=== PATIENT | male | born 1975 | race African-American/Black ===

== ENCOUNTER 2020-12-05 07:08 | Inpatient (IN) | payer OTHER ==
[2020-12-05] MEDS ORDERED: SODIUM CHLORIDE 1,000 ML IV STA (07:53)
[2020-12-05] MEDS ORDERED: ACETAMINOPHEN 1000 MG/100 ML VIAL (NON FORMULARY) IVPB ONE (07:53)
[2020-12-05] MEDS ORDERED: PANTOPRAZOLE SODIUM 40 MG VIAL IVPB ONE (07:55)
[2020-12-05] MEDS ORDERED: MAG HYDROX/AL HYDROX/SIMETH -MYLANTA- ORAL SUSPENSION PO ONE (07:55)
[2020-12-05] MEDS ORDERED: PANTOPRAZOLE SODIUM 40 MG/100 ML BAG IVPB ONE (08:02)
[2020-12-05] MEDS ORDERED: ACETAMINOPHEN INJECTION 100 ML IVPB ONE ×2 (08:02→08:23)
[2020-12-05] MEDS ORDERED: MAG HYDROX/AL HYDROX/SIMETH 30 ML UNIT-DOSE CUP ONE (08:21)
[2020-12-05 08:39] LABS: BASO % 0.6 % (0-2.0); EOS % 1.7 % (0-4.5); HEMATOCRIT 45.8 % (35.4-49); HEMOGLOBIN 15.1 GM/dL (11.7-16.9); LYMPH % 11.2 % (8-40); MCH 26.6 pg (25.7-33.7); MCHC 32.9 g/dl (32.0-35.9); MEAN CELL VOLUME 80.8 fl (80-96); MEAN PLT VOLUME 8.4 fl (7.5-11.1); MONO % 7.4 % (3.8-10.2); NEUT % 79.1 % (42.8-82.8); PLATELET COUNT 242 K/MM3 (134-434); RBC 5.67 M/mm3 (4.00-5.60); RDW 13.7 % (11.9-15.9); WHITE BLOOD COUNT 8.1 K/mm3 (4.0-10.0)
[2020-12-05 08:46] LABS: INR 1.06 (0.83-1.09); PROTHROMBIN TIME (PATIENT) 12.8 SEC (9.7-13.0)
[2020-12-05 09:04] LABS: ALBUMIN 4.2 g/dl (3.4-5.0); BLOOD UREA NITROGEN 16.8 mg/dL (7-18); CALCIUM 9.6 mg/dL (8.5-10.1)
[2020-12-05 09:05] LABS: MAGNESIUM 2.3 mg/dL (1.8-2.4)
[2020-12-05 09:08] LABS: BILIRUBIN,TOTAL 0.5 mg/dL (0.2-1); TOT PROT 8.2 g/dl (6.4-8.2)
[2020-12-05 09:58] LABS: URINE APPEARANCE CLEAR; URINE BILIRUBIN NEGATIVE (NEGATIVE); URINE COLOR YELLOW; URINE GLUCOSE (UA) NEGATIVE (NEGATIVE); URINE KETONE NEGATIVE (NEGATIVE); URINE LEUK ESTERASE NEGATIVE (NEGATIVE); URINE NITRITE NEGATIVE (NEGATIVE); URINE PROTEIN NEGATIVE (NEGATIVE); URINE UROBILINOGEN 0.2 mg/dL (0.2-1.0)
[2020-12-05 10:05] LABS: N-TERMINAL BNP 395.9 pg/ml (5-125)
[2020-12-05] MEDS ORDERED: ASPIRIN 325 MG TABLET PO ONE (10:21)
[2020-12-05] MEDS ORDERED: ASPIRIN 325 MG ENTERIC COATED TABLET (FP) ONE (11:45)
[2020-12-05] MEDS ORDERED: morphine CARPU-JECT 4 MG/1 ML DISP.SYRIN IVPUSH ONE (13:57)
[2020-12-05] MEDS ORDERED: morphine SULFATE 4 MG/ML VIAL ONE (14:52)
[2020-12-05] MEDS ORDERED: ENOXAPARIN NA (PORCINE) 40 MG/0.4 ML DISP.SYRIN SQ SCH (15:00)
[2020-12-05 18:37] LABS: HIV INTERPRETATION NEGATIVE (NEGATIVE)
[2020-12-05] MEDS ORDERED: ACETAMINOPHEN 500 MG TABLET (FP) PO PRN (22:35)
[2020-12-05] MEDS ORDERED: ENOXAPARIN NA (PORCINE) 40 MG/0.4 ML DISP.SYRIN SQ ONE (22:40)
[2020-12-05] MEDS: ENOXAPARIN NA (PORCINE) 40 MG/0.4 ML DISP.SYRIN SQ SCH (22:50)
[2020-12-06 01:46] VITALS: BMI 44.1
[2020-12-06 07:37] LABS: BASO % 0.7 % (0-2.0); HEMOGLOBIN 13.6 GM/dL (11.7-16.9); LYMPH % 27.1 % (8-40); MCH 26.9 pg (25.7-33.7); MCHC 33.1 g/dl (32.0-35.9); MEAN CELL VOLUME 81.1 fl (80-96); MEAN PLT VOLUME 8.9 fl (7.5-11.1); MONO % 13.2 % (3.8-10.2); PLATELET COUNT 206 K/MM3 (134-434); RBC 5.05 M/mm3 (4.00-5.60); RDW 13.8 % (11.9-15.9); WHITE BLOOD COUNT 5.8 K/mm3 (4.0-10.0)
[2020-12-06 08:00] LABS: ALBUMIN 3.5 g/dl (3.4-5.0); CALCIUM 8.4 mg/dL (8.5-10.1)
[2020-12-06 08:01] LABS: BLOOD UREA NITROGEN 13.3 mg/dL (7-18)
[2020-12-06 08:02] LABS: MAGNESIUM 2.2 mg/dL (1.8-2.4)
[2020-12-06 08:04] LABS: CREATININE 0.9 mg/dL (0.55-1.3); TOT PROT 6.6 g/dl (6.4-8.2)
[2020-12-06 08:05] LABS: BILIRUBIN,TOTAL 1.1 mg/dL (0.2-1)
[2020-12-06] MEDS: ENOXAPARIN NA (PORCINE) 40 MG/0.4 ML DISP.SYRIN SQ SCH ×2 (09:11→21:14)
[2020-12-06] MEDS ORDERED: ACETAMINOPHEN 500 MG TABLET (FP) PO PRN (21:17)
[2020-12-07 07:21] LABS: BASO % 0.4 % (0-2.0); EOS % 2.3 % (0-4.5); HEMATOCRIT 42.9 % (35.4-49); LYMPH % 31.4 % (8-40); MCH 26.6 pg (25.7-33.7); MCHC 32.6 g/dl (32.0-35.9); MEAN CELL VOLUME 81.5 fl (80-96); MEAN PLT VOLUME 8.8 fl (7.5-11.1); MONO % 14.1 % (3.8-10.2); NEUT % 51.8 % (42.8-82.8); PLATELET COUNT 208 K/MM3 (134-434); RBC 5.27 M/mm3 (4.00-5.60); RDW 13.8 % (11.9-15.9); WHITE BLOOD COUNT 5.8 K/mm3 (4.0-10.0)
[2020-12-07 07:40] LABS: ALBUMIN 3.5 g/dl (3.4-5.0); BLOOD UREA NITROGEN 11.1 mg/dL (7-18); CALCIUM 8.7 mg/dL (8.5-10.1)
[2020-12-07 07:44] LABS: BILIRUBIN,TOTAL 0.3 mg/dL (0.2-1); CREATININE 0.7 mg/dL (0.55-1.3); TOT PROT 6.6 g/dl (6.4-8.2)
[2020-12-07] MEDS: ENOXAPARIN NA (PORCINE) 40 MG/0.4 ML DISP.SYRIN SQ SCH ×2 (09:41→21:54)
[2020-12-07] MEDS: amLODIPine BESYLATE 5 MG TABLET (FP) PO SCH (11:47)
[2020-12-07 16:10] LABS: HEP B CORE AB, TOT Negative (Negative)
[2020-12-08 07:30] LABS: HEMATOCRIT 43.9 % (35.4-49); HEMOGLOBIN 14.2 GM/dL (11.7-16.9); MCH 26.5 pg (25.7-33.7); MCHC 32.4 g/dl (32.0-35.9); MEAN CELL VOLUME 81.9 fl (80-96); MEAN PLT VOLUME 8.6 fl (7.5-11.1); PLATELET COUNT 217 K/MM3 (134-434); RBC 5.36 M/mm3 (4.00-5.60); RDW 13.7 % (11.9-15.9); WHITE BLOOD COUNT 6.1 K/mm3 (4.0-10.0)
[2020-12-08 08:00] LABS: CALCIUM 9.2 mg/dL (8.5-10.1)
[2020-12-08 08:01] LABS: ALBUMIN 3.7 g/dl (3.4-5.0); BLOOD UREA NITROGEN 11.1 mg/dL (7-18)
[2020-12-08 08:06] LABS: BILIRUBIN,TOTAL 0.3 mg/dL (0.2-1)
[2020-12-08] MEDS: amLODIPine BESYLATE 5 MG TABLET (FP) PO SCH (09:47)
[2020-12-08] MEDS: ENOXAPARIN NA (PORCINE) 40 MG/0.4 ML DISP.SYRIN SQ SCH ×2 (10:19→20:59)
[2020-12-08] MEDS: PANTOPRAZOLE 40 MG TABLET PO SCH (13:08)
[2020-12-09] MEDS: PANTOPRAZOLE 40 MG TABLET PO SCH (09:37)
[2020-12-09] MEDS: amLODIPine BESYLATE 5 MG TABLET (FP) PO SCH (09:37)
[2020-12-09] MEDS: ENOXAPARIN NA (PORCINE) 40 MG/0.4 ML DISP.SYRIN SQ SCH (09:37)
[2020-12-09 16:08] VITALS: BP 149/97; PULSE 87; TEMP 98
== END 2020-12-09 15:08 | disposition home or self-care (01) ==
LOC: JER 07:08 → JERBED 14:09 → J4W 12-06 01:16 → J8W 12-08 12:02
PROVIDERS: ADMIT Internal Medicine; ATTEND Internal Medicine
DX: K80.50 Calculus of bile duct without cholangitis or cholecystitis without obstruction (principal); E66.01 Morbid (severe) obesity due to excess calories; Z68.41 Body mass index [BMI] 40.0-44.9, adult; I42.9 Cardiomyopathy, unspecified; A09 Infectious gastroenteritis and colitis, unspecified; I10 Essential (primary) hypertension; K83.8 Other specified diseases of biliary tract; K76.0 Fatty (change of) liver, not elsewhere classified; R94.31 Abnormal electrocardiogram [ECG] [EKG]; K21.9 Gastro-esophageal reflux disease without esophagitis; R74.01 Elevation of levels of liver transaminase levels; R74.8 Abnormal levels of other serum enzymes
CPT/HCPCS: 36415; 71046-TC-FY; 74177-TC; 76705-TC; 80053; 80061; 81003; 82550; 82553; 82977; 83036; 83690; 83721; 83735; 83880; 84100; 84443; 84484; 85025; 85027; 85610; 86140; 86704; 86706; 86707; 86708; 86709; 86803; 87045; 87046; 87086; 87177; 87205; 87209; 87324; 87340; 87389; 87449; 87902; 93005; 93010; 93306-TC; 99285-25; C9803; J0131; Q9967; U0003; U0005

== ENCOUNTER 2021-08-07 17:51 | Inpatient (IN) | payer OTHER ==
[2021-08-07] MEDS ORDERED: ACETAMINOPHEN 500 MG TABLET (FP) PO ONE (20:34)
[2021-08-07] MEDS ORDERED: ACETAMINOPHEN 500 MG TABLET (FP) ONE (21:12)
[2021-08-07 22:17] LABS: INR 1.18 (0.83-1.09); PROTHROMBIN TIME (PATIENT) 13.8 SEC (9.7-13.0)
[2021-08-07 22:19] LABS: ACTIVATED PTT 29.6 SECONDS (25.2-36.5)
[2021-08-07 22:20] LABS: EOS % 1.3 % (0-4.5); HEMATOCRIT 41.9 % (35.4-49); HEMOGLOBIN 13.6 GM/dL (11.7-16.9); LYMPH % 17.3 % (8-40); MCH 25.8 pg (25.7-33.7); MCHC 32.4 g/dl (32.0-35.9); MEAN CELL VOLUME 79.7 fl (80-96); MEAN PLT VOLUME 8.4 fl (7.5-11.1); MONO % 15.4 % (3.8-10.2); PLATELET COUNT 231 10^3/uL (134-434); RBC 5.25 M/mm3 (4.00-5.60); RDW 14.1 % (11.9-15.9); WHITE BLOOD COUNT 6.9 K/mm3 (4.0-10.0)
[2021-08-07 22:23] LABS: BLOOD UREA NITROGEN 13.4 mg/dL (7-18); CALCIUM 8.7 mg/dL (8.5-10.1)
[2021-08-07 22:24] LABS: ALBUMIN 3.4 g/dl (3.4-5.0)
[2021-08-07 22:27] LABS: CREATININE 1.1 mg/dL (0.55-1.3)
[2021-08-07 22:28] LABS: BILIRUBIN,TOTAL 0.3 mg/dL (0.2-1)
[2021-08-07 22:32] LABS: N-TERMINAL BNP 314.1 pg/ml (5-125)
[2021-08-07] MEDS ORDERED: morphine CARPU-JECT 2 MG/1 ML DISP.SYRIN IVPUSH ONE (23:03)
[2021-08-07] MEDS ORDERED: ASPIRIN 81 MG CHEWABLE TABLETS PO ONE (23:03)
[2021-08-07] MEDS ORDERED: ASPIRIN 81 MG CHEWABLE TABLETS ONE (23:14)
[2021-08-08] MEDS ORDERED: ALBUTEROL SO4 HFA INHALER IH PRN (06:53)
[2021-08-08] MEDS ORDERED: DEXAMETHASONE SOD PHOSPHATE 10 MG/1 ML VIAL ONE (07:48)
[2021-08-08] MEDS ORDERED: ENOXAPARIN NA (PORCINE) 40 MG/0.4 ML DISP.SYRIN SQ ONE (07:48)
[2021-08-08] MEDS ORDERED: PANTOPRAZOLE 40 MG TABLET ONE (07:48)
[2021-08-08] MEDS ORDERED: amLODIPine BESYLATE 5 MG TABLET (FP) ONE (07:48)
[2021-08-08 08:48] LABS: BLOOD UREA NITROGEN 11.4 mg/dL (7-18); MAGNESIUM 2.2 mg/dL (1.8-2.4)
[2021-08-08 08:51] LABS: CALCIUM 9.1 mg/dL (8.5-10.1)
[2021-08-08 08:52] LABS: CREATININE 0.9 mg/dL (0.55-1.3)
[2021-08-08] MEDS ORDERED: guaiFENesin/D-M SUGAR-FREE/ACLHOL-FREE 118 ML BOTTLE PO PRN (09:19)
[2021-08-08] MEDS: DEXAMETHASONE SOD PHOSPHATE 10 MG/1 ML VIAL IVPUSH SCH (09:55)
[2021-08-08] MEDS: PANTOPRAZOLE 40 MG TABLET PO SCH (09:55)
[2021-08-08] MEDS: BUDESONIDE/FORMETEROL FUMARATE 160/4.5 mcg INHALER IH SCH (09:56)
[2021-08-08] MEDS ORDERED: ENOXAPARIN NA (PORCINE) 40 MG/0.4 ML DISP.SYRIN SQ SCH ×2 (10:00)
[2021-08-08] MEDS ORDERED: amLODIPine BESYLATE 5 MG TABLET (FP) PO SCH (10:00)
[2021-08-08 10:45] LABS: BASO % 1.1 % (0-2.0); EOS % 0.8 % (0-4.5); HEMATOCRIT 40.6 % (35.4-49); HEMOGLOBIN 13.6 GM/dL (11.7-16.9); LYMPH % 16.6 % (8-40); MCH 26.3 pg (25.7-33.7); MCHC 33.5 g/dl (32.0-35.9); MEAN CELL VOLUME 78.4 fl (80-96); MEAN PLT VOLUME 8.1 fl (7.5-11.1); MONO % 8.3 % (3.8-10.2); NEUT % 73.2 % (42.8-82.8); PLATELET COUNT 213 10^3/uL (134-434); RBC 5.17 M/mm3 (4.00-5.60); RDW 14.1 % (11.9-15.9); WHITE BLOOD COUNT 5.8 K/mm3 (4.0-10.0)
[2021-08-08] MEDS ORDERED: LIDOCAINE 5% TOPICAL PATCH TP ONE (13:27)
[2021-08-08] MEDS ORDERED: REMDESIVIR 200 MG in SODIUM CHLORIDE 250 ML IVPB ONE (14:00)
[2021-08-08] MEDS ORDERED: LIDOCAINE 5% TOPICAL PATCH ONE (14:42)
[2021-08-08] MEDS: ALBUTEROL SO4 HFA INHALER IH SCH ×2 (16:00→23:30)
[2021-08-09 00:20] VITALS: BMI 44.5
[2021-08-09] MEDS: BUDESONIDE/FORMETEROL FUMARATE 160/4.5 mcg INHALER IH SCH ×3 (00:51→21:57)
[2021-08-09] MEDS: LIDOCAINE PATCH REMOVAL MC SCH ×2 (00:51→22:00)
[2021-08-09 07:37] LABS: HEMATOCRIT 42.6 % (35.4-49); HEMOGLOBIN 13.5 GM/dL (11.7-16.9); MCH 25.4 pg (25.7-33.7); MCHC 31.8 g/dl (32.0-35.9); MEAN PLT VOLUME 8.2 fl (7.5-11.1); PLATELET COUNT 245 10^3/uL (134-434); RBC 5.33 M/mm3 (4.00-5.60); RDW 14.1 % (11.9-15.9); WHITE BLOOD COUNT 7.2 K/mm3 (4.0-10.0)
[2021-08-09 07:58] LABS: CALCIUM 9.1 mg/dL (8.5-10.1); MAGNESIUM 2.4 mg/dL (1.8-2.4)
[2021-08-09 07:59] LABS: BLOOD UREA NITROGEN 13.8 mg/dL (7-18)
[2021-08-09 08:02] LABS: CREATININE 0.8 mg/dL (0.55-1.3); PHOSPHOROUS 3.6 mg/dL (2.5-4.9)
[2021-08-09] MEDS: ALBUTEROL SO4 HFA INHALER IH SCH ×4 (08:25→21:57)
[2021-08-09] MEDS: amLODIPine BESYLATE 5 MG TABLET (FP) PO SCH (10:25)
[2021-08-09] MEDS: DEXAMETHASONE SOD PHOSPHATE 10 MG/1 ML VIAL IVPUSH SCH (10:25)
[2021-08-09] MEDS: PANTOPRAZOLE 40 MG TABLET PO SCH (10:25)
[2021-08-09] MEDS: ENOXAPARIN NA (PORCINE) 40 MG/0.4 ML DISP.SYRIN SQ SCH (10:26)
[2021-08-09] MEDS: REMDESIVIR 100 MG in SODIUM CHLORIDE 250 ML IVPB SCH (14:23)
[2021-08-09] MEDS ORDERED: ACETAMINOPHEN 325 MG TABLET (FP) PO PRN (17:00)
[2021-08-10 09:14] LABS: MCH 25.8 pg (25.7-33.7); MCHC 32.6 g/dl (32.0-35.9); MEAN CELL VOLUME 79.2 fl (80-96); MEAN PLT VOLUME 8.2 fl (7.5-11.1); PLATELET COUNT 254 10^3/uL (134-434); RBC 5.44 M/mm3 (4.00-5.60); RDW 14.1 % (11.9-15.9); WHITE BLOOD COUNT 9.7 K/mm3 (4.0-10.0)
[2021-08-10 09:57] LABS: BLOOD UREA NITROGEN 13.8 mg/dL (7-18)
[2021-08-10 09:59] LABS: ALBUMIN 3.5 g/dl (3.4-5.0); CALCIUM 9.2 mg/dL (8.5-10.1); MAGNESIUM 2.1 mg/dL (1.8-2.4)
[2021-08-10 10:02] LABS: CREATININE 0.9 mg/dL (0.55-1.3); PHOSPHOROUS 3.2 mg/dL (2.5-4.9)
[2021-08-10 10:04] LABS: BILIRUBIN,TOTAL 0.3 mg/dL (0.2-1); TOT PROT 7.1 g/dl (6.4-8.2)
[2021-08-10] MEDS: ALBUTEROL SO4 HFA INHALER IH SCH ×4 (10:05→20:00)
[2021-08-10] MEDS: ENOXAPARIN NA (PORCINE) 40 MG/0.4 ML DISP.SYRIN SQ SCH (10:06)
[2021-08-10] MEDS: DEXAMETHASONE SOD PHOSPHATE 10 MG/1 ML VIAL IVPUSH SCH (10:06)
[2021-08-10] MEDS: PANTOPRAZOLE 40 MG TABLET PO SCH (10:07)
[2021-08-10] MEDS: BUDESONIDE/FORMETEROL FUMARATE 160/4.5 mcg INHALER IH SCH ×2 (10:07→22:17)
[2021-08-10] MEDS: amLODIPine BESYLATE 5 MG TABLET (FP) PO SCH (10:07)
[2021-08-10] MEDS: REMDESIVIR 100 MG in SODIUM CHLORIDE 250 ML IVPB SCH (14:25)
[2021-08-10] MEDS: VALSARTAN 160 MG TABLET PO SCH (14:25)
[2021-08-10] MEDS: LIDOCAINE PATCH REMOVAL MC SCH (21:18)
[2021-08-11] MEDS: ALBUTEROL SO4 HFA INHALER IH SCH ×4 (08:30→20:15)
[2021-08-11] MEDS ORDERED: PT OWN MED DRAWER 7, Y5N ONE (09:23)
[2021-08-11] MEDS: VALSARTAN 160 MG TABLET PO SCH (10:04)
[2021-08-11] MEDS: ENOXAPARIN NA (PORCINE) 40 MG/0.4 ML DISP.SYRIN SQ SCH (10:04)
[2021-08-11] MEDS: PANTOPRAZOLE 40 MG TABLET PO SCH (10:04)
[2021-08-11] MEDS: amLODIPine BESYLATE 5 MG TABLET (FP) PO SCH (10:04)
[2021-08-11] MEDS: BUDESONIDE/FORMETEROL FUMARATE 160/4.5 mcg INHALER IH SCH ×2 (10:05→21:19)
[2021-08-11] MEDS: DEXAMETHASONE SOD PHOSPHATE 10 MG/1 ML VIAL IVPUSH SCH (10:05)
[2021-08-11] MEDS: REMDESIVIR 100 MG in SODIUM CHLORIDE 250 ML IVPB SCH (14:16)
[2021-08-12] MEDS: ALBUTEROL SO4 HFA INHALER IH SCH ×4 (08:30→21:13)
[2021-08-12] MEDS: PANTOPRAZOLE 40 MG TABLET PO SCH (10:08)
[2021-08-12] MEDS: amLODIPine BESYLATE 5 MG TABLET (FP) PO SCH (10:08)
[2021-08-12] MEDS: VALSARTAN 160 MG TABLET PO SCH (10:08)
[2021-08-12] MEDS: DEXAMETHASONE SOD PHOSPHATE 10 MG/1 ML VIAL IVPUSH SCH (10:09)
[2021-08-12] MEDS: ENOXAPARIN NA (PORCINE) 40 MG/0.4 ML DISP.SYRIN SQ SCH (10:10)
[2021-08-12] MEDS: BUDESONIDE/FORMETEROL FUMARATE 160/4.5 mcg INHALER IH SCH ×2 (10:10→21:13)
[2021-08-12] MEDS ORDERED: PT OWN MED DRAWER 7, Y5N ONE (13:14)
[2021-08-12] MEDS: REMDESIVIR 100 MG in SODIUM CHLORIDE 250 ML IVPB SCH (13:24)
[2021-08-12 16:41] LABS: BLOOD UREA NITROGEN 21.3 mg/dL (7-18); CALCIUM 9.6 mg/dL (8.5-10.1)
[2021-08-12 16:45] LABS: CREATININE 1.2 mg/dL (0.55-1.3)
[2021-08-13] MEDS: ALBUTEROL SO4 HFA INHALER IH SCH ×3 (09:56→17:01)
[2021-08-13] MEDS ORDERED: DEXAMETHASONE 4 MG TABLET (FP) PO ONE (10:40)
[2021-08-13] MEDS: ENOXAPARIN NA (PORCINE) 40 MG/0.4 ML DISP.SYRIN SQ SCH (10:58)
[2021-08-13] MEDS: PANTOPRAZOLE 40 MG TABLET PO SCH (10:59)
[2021-08-13] MEDS: VALSARTAN 160 MG TABLET PO SCH (10:59)
[2021-08-13] MEDS: BUDESONIDE/FORMETEROL FUMARATE 160/4.5 mcg INHALER IH SCH (10:59)
[2021-08-13] MEDS: amLODIPine BESYLATE 5 MG TABLET (FP) PO SCH (10:59)
[2021-08-13 11:15] VITALS: BP 164/77; PULSE 85; TEMP 98.1
[2021-08-13] MEDS: DEXAMETHASONE SOD PHOSPHATE 10 MG/1 ML VIAL IVPUSH SCH (12:36)
== END 2021-08-13 18:37 | disposition home or self-care (01) | DRG 137 ==
LOC: JER 17:51 → JERBED 23:16 → J4S 08-08 21:35
PROVIDERS: ADMIT Hospitalist; ATTEND Internal Medicine
PROC: XW033E5 Introduction of Remdesivir Anti-infective into Peripheral Vein, Percutaneous Approach, New Technology Group 5 (ICD-10-PCS; principal; 2021-08-08)
PROC: 3E0333Z Introduction of Anti-inflammatory into Peripheral Vein, Percutaneous Approach (ICD-10-PCS; 2021-08-08)
DX: U07.1 COVID-19 (principal); J12.82 Pneumonia due to coronavirus disease 2019; I24.8 Other forms of acute ischemic heart disease; E66.01 Morbid (severe) obesity due to excess calories; Z68.41 Body mass index [BMI] 40.0-44.9, adult; G47.33 Obstructive sleep apnea (adult) (pediatric); I10 Essential (primary) hypertension; M54.50 Low back pain, unspecified; I42.9 Cardiomyopathy, unspecified; R77.8 Other specified abnormalities of plasma proteins; K21.9 Gastro-esophageal reflux disease without esophagitis; R07.89 Other chest pain; J96.01 Acute respiratory failure with hypoxia; E85.4 Organ-limited amyloidosis; I43 Cardiomyopathy in diseases classified elsewhere
CPT/HCPCS: 36415; 71045-TC-FY; 71046-TC-FY; 80048; 80053; 82550; 82553; 82728; 83615; 83735; 83880; 84100; 84484; 85025; 85027; 85379; 85610; 85651; 85730; 86140; 87804; 93005; 93010; 94010; 99285-25; C9399; C9803; J1100; U0003; U0005

== ENCOUNTER 2023-04-28 09:30 | Emergency (ER) | payer OTHER ==
[2023-04-28 09:36] VITALS: BP 150/91; PULSE 78; RESP 18; TEMP 98.5; BMI 35.1
== END 2023-04-28 14:50 | disposition home or self-care (01) ==
LOC: JERFT 09:30
DX: R05.9 Cough, unspecified (principal); R09.81 Nasal congestion; R07.9 Chest pain, unspecified; Z20.822 Contact with and (suspected) exposure to COVID-19
CPT/HCPCS: 0241U-QW; 71046-TC-FY; 93005; 93010; 99285-25